=== PATIENT | female | born 1955 | race African-American/Black ===

== ENCOUNTER 2022-08-28 20:06 | Inpatient (IN) ==
[~2022-08-28 20:06] MED LIST: TICAGRELOR 90 MG TABLET PO STA
[2022-08-28 21:36] LABS: Basophils % 0.3 % (0.0-0.8); Eosinophils % 0.2 % (0.00-10.9); Hematocrit 33.7 VOL% (35.7-47.0); Hemoglobin 10.4 GM/DL (12.0-16.0); Immature Granulocytes % 0.4 %; Immature Granulocytes Absolute 0.05 #; Lymphocytes # 0.6 10*3/uL (1.4-4.0); Lymphocytes % 4.9 % (21.3-54.2); Mean Corpuscular HGB Conc 30.9 GM/DL (32-36); Mean Corpuscular Volume 94.7 FL (87-102); Mean Platelet Volume 12.3 FL (9.6-12.0); Monocytes # 0.6 10*3/uL (0.11-0.8); Monocytes % 5.3 % (1.7-12.7); Neutrophils % 88.9 % (38.7-73.9); Platelet Count 186 T/CUMM (130-400); Red Blood Count 3.56 MC/CUMM (3.8-5.5); Red Cell Distribution Width 17.9 % (9.3-17.3)
[2022-08-28 21:54] LABS: Albumin 3.4 G/DL (3.4-5.0); Bilirubin,Total 0.6 MG/DL (0.20-1.00); Calcium 8.7 MG/DL (8.5-10.1); Osmolality,Calculated 291.1 MOS/KG (273-304); Total Protein 6.4 G/DL (6.4-8.2)
[2022-08-28 21:57] LABS: Lymphocytes 6 % (20-55); Total Cells Counted 100
[2022-08-28 21:58] LABS: Platelet Estimate Adequate
[2022-08-28] MEDS ORDERED: ONDANSETRON 4 MG/2 ML VIAL ONE (22:08)
[2022-08-28] MEDS ORDERED: NITROGLYCERIN SL 0.4 MG TABLET SL STA (22:15)
[2022-08-28] MEDS ORDERED: ASPIRIN EC 325 MG TABLET PO STA (22:15)
[2022-08-28] MEDS ORDERED: fentaNYL 100 MCG/2 ML VIAL IV STA (22:16)
[2022-08-28] MEDS ORDERED: ENOXAPARIN 30 MG/0.3 ML SYRINGE SUBCUT STA (23:15)
[2022-08-28] MEDS ORDERED: ENOXAPARIN 100 MG/ML SYRINGE SUBCUT ONE (23:31)
[2022-08-28] MEDS ORDERED: PROMETHAZINE 25 MG/1 ML VIAL ONE (23:35)
[2022-08-28] MEDS ORDERED: hydrALAZINE 20 MG/1 ML VIAL IV PRN (23:41)
[2022-08-28] MEDS ORDERED: diphenhydrAMINE CAP 25 MG CAPSULE PO PRN (23:41)
[2022-08-28] MEDS ORDERED: DEXTROSE 10% 250 ML BAG IV PRN (23:41)
[2022-08-28] MEDS ORDERED: NICOTINE 21 MG/24 HR PATCH TRANSDERM PRN (23:41)
[2022-08-28] MEDS ORDERED: GLUCAGON 1 MG VIAL IM PRN (23:41)
[2022-08-28] MEDS ORDERED: ZALEPLON 5 MG CAPSULE PO PRN (23:41)
[2022-08-28] MEDS ORDERED: ACETAMINOPHEN 325 MG TABLET PO PRN (23:41)
[2022-08-28] MEDS ORDERED: guaiFENesin/DM ER 600-30 MG TABLET PO PRN (23:41)
[2022-08-29] MEDS: MORPHINE 2 MG/1 ML SYRINGE IV PRN (02:04)
[2022-08-29 03:19] LABS: Basophils % 0.2 % (0.0-0.8); Eosinophils % 0.1 % (0.00-10.9); Hemoglobin 9.2 GM/DL (12.0-16.0); Immature Granulocytes % 0.5 %; Immature Granulocytes Absolute 0.06 #; Lymphocytes # 0.8 10*3/uL (1.4-4.0); Lymphocytes % 5.8 % (21.3-54.2); Mean Corpuscular HGB Conc 30.7 GM/DL (32-36); Mean Corpuscular Volume 93.2 FL (87-102); Mean Platelet Volume 11.1 FL (9.6-12.0); Monocytes # 0.8 10*3/uL (0.11-0.8); Monocytes % 5.7 % (1.7-12.7); Neutrophils % 87.7 % (38.7-73.9); Platelet Count 159 T/CUMM (130-400); Red Blood Count 3.22 MC/CUMM (3.8-5.5); Red Cell Distribution Width 17.9 % (9.3-17.3); White Blood Count 13.3 T/CUMM (4-12)
[2022-08-29] MEDS ORDERED: TICAGRELOR 90 MG TABLET PO STA (03:32)
[2022-08-29 03:41] LABS: Calcium 8.3 MG/DL (8.5-10.1); Osmolality,Calculated 291.3 MOS/KG (273-304); Potassium 4.3 MMOL/L (3.5-5.1)
[2022-08-29 06:48] LABS: Bacteria,Urine Many /HPF (Few); Mucus,Urine Occasional /LPF (Occasional); RBC,Urine 1 /HPF (0-4); Squamous Epithelial Cell,Urine Occasional /HPF (0-10)
[2022-08-29 06:49] LABS: Bilirubin,Urine Small mg/dL (Negative); Blood, Urine Negative (Negative); Glucose,Urine (UA) Negative (Negative); Ketones,Urine Trace mg/dL (Negative); Nitrite,Urine Negative (Negative); Protein,Urine >=300 mg/dL (Negative); Urine Appearance Clear (Clear); Urine Color Yellow (Yellow); Urine Specific Gravity > 1.030 (1.001-1.035); Urine Urobilinogen 0.2 eU/dL (<2.0); Urine pH 5.5 (4.5-8.0)
[2022-08-29] MEDS ORDERED: FUROSEMIDE 40 MG/4 ML VIAL IV SCH ×2 (07:00→09:00)
[2022-08-29] MEDS ORDERED: INSULIN LISPRO 100 UNIT/ML SUBCUT SCH ×2 (07:30→12:00)
[2022-08-29] MEDS ORDERED: ROSUVASTATIN 20 MG TABLET PO SCH (09:00)
[2022-08-29 10:39] LABS: Risk Ratio 1.64
[2022-08-29] MEDS: carvediloL 25 MG TABLET PO SCH ×2 (13:13→23:22)
[2022-08-29] MEDS: PANTOPRAZOLE 40 MG TABLET PO SCH (13:13)
[2022-08-29] MEDS: ISOSORBIDE MONONITRATE 30 MG TABLET PO SCH (13:13)
[2022-08-29] MEDS: ASPIRIN EC 81 MG TABLET PO SCH (13:13)
[2022-08-29] MEDS: DEXTROSE 5% NACL 0.45% 1,000 ML IV SCH (14:38)
[2022-08-29 14:58] LABS: Hepatitis B Core IgM Quant 0.13 Index; Hepatitis B Surface Ag Quant 0.24 Index; Hepatitis B Surface Ag Result Non-Reactive (NonReactive); Hepatitis C Virus Ab Quant 0.23 Index; Hepatitis C Virus Ab Result Non-Reactive (NonReactive)
[2022-08-29] MEDS: INSULIN LISPRO 100 UNIT/ML SUBCUT SCH ×2 (17:15→23:23)
[2022-08-30] MEDS: DEXTROSE 5% NACL 0.45% 1,000 ML IV SCH ×2 (05:25→15:40)
[2022-08-30 05:34] LABS: Basophils % 0.2 % (0.0-0.8); Eosinophils # 0.2 10*3/uL (0.0-0.87); Eosinophils % 2.8 % (0.00-10.9); Hematocrit 25.8 VOL% (35.7-47.0); Hemoglobin 8.1 GM/DL (12.0-16.0); Immature Granulocytes % 0.3 %; Immature Granulocytes Absolute 0.02 #; Lymphocytes # 0.7 10*3/uL (1.4-4.0); Lymphocytes % 11.7 % (21.3-54.2); Mean Corpuscular HGB Conc 31.4 GM/DL (32-36); Mean Corpuscular Volume 92.5 FL (87-102); Mean Platelet Volume 13.2 FL (9.6-12.0); Monocytes # 0.5 10*3/uL (0.11-0.8); Monocytes % 8.5 % (1.7-12.7); Neutrophils % 76.5 % (38.7-73.9); Platelet Count 145 T/CUMM (130-400); Red Blood Count 2.79 MC/CUMM (3.8-5.5); White Blood Count 6.1 T/CUMM (4-12)
[2022-08-30 05:51] LABS: Calcium 7.8 MG/DL (8.5-10.1); Osmolality,Calculated 289.4 MOS/KG (273-304); Potassium 4.2 MMOL/L (3.5-5.1)
[2022-08-30 06:02] LABS: Albumin 2.6 G/DL (3.4-5.0); Bilirubin,Direct 0.16 MG/DL (0.0-0.20); Bilirubin,Indirect 0.2 MG/DL (0.0-1.0); Bilirubin,Total 0.4 MG/DL (0.20-1.00); Total Protein 4.8 G/DL (6.4-8.2)
[2022-08-30] MEDS: INSULIN LISPRO 100 UNIT/ML SUBCUT SCH ×4 (08:37→21:50)
[2022-08-30] MEDS: ISOSORBIDE MONONITRATE 30 MG TABLET PO SCH (09:35)
[2022-08-30] MEDS: CLOPIDOGREL 75 MG TABLET PO SCH (09:35)
[2022-08-30] MEDS: carvediloL 25 MG TABLET PO SCH ×2 (09:35→21:50)
[2022-08-30] MEDS: PANTOPRAZOLE 40 MG TABLET PO SCH (09:35)
[2022-08-30] MEDS: ASPIRIN EC 81 MG TABLET PO SCH (09:36)
[2022-08-30 10:37] LABS: % Iron Saturation 6.5 % (18-50)
[2022-08-30 12:01] LABS: Alkaline Phos %Thermolabile 19 %; Alkaline Phos %Thermostable 81 %; Alkaline Phosphatase 207 U/L (45-117)
[2022-08-30] MEDS: ONDANSETRON 4 MG/2 ML VIAL IV PRN ×2 (12:12→19:35)
[2022-08-30] MEDS: DOCUSATE SODIUM 100 MG CAPSULE PO SCH (21:50)
[2022-08-30] MEDS: FERROUS SULFATE 325 MG TABLET PO SCH (21:50)
[2022-08-31] MEDS: DEXTROSE 5% NACL 0.45% 1,000 ML IV SCH ×3 (01:45→21:25)
[2022-08-31 04:38] LABS: Basophils % 0.4 % (0.0-0.8); Eosinophils # 0.2 10*3/uL (0.0-0.87); Eosinophils % 4.2 % (0.00-10.9); Hematocrit 25.5 VOL% (35.7-47.0); Hemoglobin 7.9 GM/DL (12.0-16.0); Immature Granulocytes % 0.4 %; Immature Granulocytes Absolute 0.02 #; Lymphocytes # 0.9 10*3/uL (1.4-4.0); Lymphocytes % 19.5 % (21.3-54.2); Mean Corpuscular Volume 92.7 FL (87-102); Mean Platelet Volume 12.6 FL (9.6-12.0); Monocytes # 0.5 10*3/uL (0.11-0.8); Monocytes % 10.1 % (1.7-12.7); Neutrophils % 65.4 % (38.7-73.9); Platelet Count 127 T/CUMM (130-400); Red Blood Count 2.75 MC/CUMM (3.8-5.5); White Blood Count 4.6 T/CUMM (4-12)
[2022-08-31 04:53] LABS: Calcium 7.8 MG/DL (8.5-10.1); Potassium 3.8 MMOL/L (3.5-5.1)
[2022-08-31] MEDS: INSULIN LISPRO 100 UNIT/ML SUBCUT SCH ×4 (09:06→21:00)
[2022-08-31] MEDS: DOCUSATE SODIUM 100 MG CAPSULE PO SCH ×2 (09:49→21:19)
[2022-08-31] MEDS: PANTOPRAZOLE 40 MG TABLET PO SCH (09:49)
[2022-08-31] MEDS: ASPIRIN EC 81 MG TABLET PO SCH (09:49)
[2022-08-31] MEDS: CLOPIDOGREL 75 MG TABLET PO SCH (09:49)
[2022-08-31] MEDS: FERROUS SULFATE 325 MG TABLET PO SCH ×2 (09:49→21:19)
[2022-08-31] MEDS: carvediloL 25 MG TABLET PO SCH ×2 (09:51→21:22)
[2022-08-31] MEDS: ISOSORBIDE MONONITRATE 30 MG TABLET PO SCH (09:51)
[2022-08-31] MEDS: POLYETHYLENE GLYCOL POWDER 17 GM PACK PO PRN (14:34)
[2022-08-31] MEDS: MORPHINE 2 MG/1 ML SYRINGE IV PRN (21:22)
[2022-08-31] MEDS: ONDANSETRON 4 MG/2 ML VIAL IV PRN (23:15)
[2022-09-01] MEDS ORDERED: METOCLOPRAMIDE 10 MG/2 ML VIAL IV PRN (01:20)
[2022-09-01 04:40] LABS: Basophils % 0.4 % (0.0-0.8); Eosinophils # 0.1 10*3/uL (0.0-0.87); Eosinophils % 2.5 % (0.00-10.9); Hematocrit 25.6 VOL% (35.7-47.0); Hemoglobin 8.1 GM/DL (12.0-16.0); Immature Granulocytes % 0.4 %; Immature Granulocytes Absolute 0.02 #; Lymphocytes % 21.4 % (21.3-54.2); Mean Corpuscular HGB Conc 31.6 GM/DL (32-36); Mean Corpuscular Volume 91.1 FL (87-102); Mean Platelet Volume 12.5 FL (9.6-12.0); Monocytes # 0.5 10*3/uL (0.11-0.8); Monocytes % 10.9 % (1.7-12.7); Neutrophils % 64.4 % (38.7-73.9); Platelet Count 144 T/CUMM (130-400); Red Blood Count 2.81 MC/CUMM (3.8-5.5); Red Cell Distribution Width 17.4 % (9.3-17.3); White Blood Count 4.9 T/CUMM (4-12)
[2022-09-01 04:56] LABS: Calcium 7.8 MG/DL (8.5-10.1); Osmolality,Calculated 277.5 MOS/KG (273-304); Potassium 4.5 MMOL/L (3.5-5.1)
[2022-09-01] MEDS: DEXTROSE 5% NACL 0.45% 1,000 ML IV SCH ×2 (07:45→18:50)
[2022-09-01] MEDS: CLOPIDOGREL 75 MG TABLET PO SCH (08:56)
[2022-09-01] MEDS: FERROUS SULFATE 325 MG TABLET PO SCH ×2 (08:56→21:30)
[2022-09-01] MEDS: PANTOPRAZOLE 40 MG TABLET PO SCH (08:56)
[2022-09-01] MEDS: carvediloL 25 MG TABLET PO SCH ×2 (08:56→21:30)
[2022-09-01] MEDS: ASPIRIN EC 81 MG TABLET PO SCH (08:56)
[2022-09-01] MEDS: ISOSORBIDE MONONITRATE 30 MG TABLET PO SCH (08:56)
[2022-09-01] MEDS: DOCUSATE SODIUM 100 MG CAPSULE PO SCH ×2 (08:56→21:30)
[2022-09-01] MEDS: INSULIN LISPRO 100 UNIT/ML SUBCUT SCH ×4 (08:57→20:34)
[2022-09-01] MEDS ORDERED: BISACODYL 10 MG SUPP RECTAL PRN (10:38)
[2022-09-02] MEDS: DEXTROSE 5% NACL 0.45% 1,000 ML IV SCH (05:05)
[2022-09-02] MEDS: POLYETHYLENE GLYCOL POWDER 17 GM PACK PO PRN (06:30)
[2022-09-02] MEDS: NITROGLYCERIN SL 0.4 MG TABLET SL PRN ×2 (07:31→07:36)
[2022-09-02 07:52] LABS: Basophils % 0.6 % (0.0-0.8); Eosinophils # 0.3 10*3/uL (0.0-0.87); Eosinophils % 5.6 % (0.00-10.9); Hematocrit 27.1 VOL% (35.7-47.0); Hemoglobin 8.8 GM/DL (12.0-16.0); Immature Granulocytes % 0.4 %; Immature Granulocytes Absolute 0.02 #; Lymphocytes # 0.9 10*3/uL (1.4-4.0); Lymphocytes % 18.7 % (21.3-54.2); Mean Corpuscular HGB Conc 32.5 GM/DL (32-36); Mean Corpuscular Volume 89.1 FL (87-102); Mean Platelet Volume 12.6 FL (9.6-12.0); Monocytes # 0.5 10*3/uL (0.11-0.8); Monocytes % 9.7 % (1.7-12.7); Platelet Count 165 T/CUMM (130-400); Red Blood Count 3.04 MC/CUMM (3.8-5.5); Red Cell Distribution Width 17.1 % (9.3-17.3); White Blood Count 4.7 T/CUMM (4-12)
[2022-09-02 08:09] LABS: Eosinophils 6 % (0-10); Lymphocytes 16 % (20-55); Platelet Estimate Adequate; Total Cells Counted 100
[2022-09-02 08:10] LABS: Hypochromia 1+; Microcytosis 1+
[2022-09-02] MEDS ORDERED: LACTULOSE 20 GM/30 ML UDCUP PO ONE (08:26)
[2022-09-02 08:46] LABS: Osmolality,Calculated 266.1 MOS/KG (273-304); Potassium 3.7 MMOL/L (3.5-5.1)
[2022-09-02] MEDS: DOCUSATE SODIUM 100 MG CAPSULE PO SCH ×2 (09:17→20:56)
[2022-09-02] MEDS: CLOPIDOGREL 75 MG TABLET PO SCH (09:18)
[2022-09-02] MEDS: ISOSORBIDE MONONITRATE 30 MG TABLET PO SCH (09:19)
[2022-09-02] MEDS: PANTOPRAZOLE 40 MG TABLET PO SCH (09:19)
[2022-09-02] MEDS: carvediloL 25 MG TABLET PO SCH ×2 (09:20→20:56)
[2022-09-02] MEDS: FERROUS SULFATE 325 MG TABLET PO SCH ×2 (09:20→20:56)
[2022-09-02] MEDS: ASPIRIN EC 81 MG TABLET PO SCH (09:21)
[2022-09-02] MEDS: INSULIN LISPRO 100 UNIT/ML SUBCUT SCH ×4 (09:21→20:56)
[2022-09-02] MEDS ORDERED: LACTULOSE 20 GM/30 ML UDCUP PO PRN (09:46)
[2022-09-02] MEDS: DEXTROSE 5% NACL 0.9% 1,000 ML IV SCH ×2 (11:55→21:22)
[2022-09-03 05:39] LABS: Calcium 7.8 MG/DL (8.5-10.1); Osmolality,Calculated 266.9 MOS/KG (273-304); Potassium 3.6 MMOL/L (3.5-5.1)
[2022-09-03] MEDS: PANTOPRAZOLE 40 MG TABLET PO SCH (08:42)
[2022-09-03] MEDS: CLOPIDOGREL 75 MG TABLET PO SCH (08:43)
[2022-09-03] MEDS: ISOSORBIDE MONONITRATE 30 MG TABLET PO SCH (08:43)
[2022-09-03] MEDS: ASPIRIN EC 81 MG TABLET PO SCH (08:43)
[2022-09-03] MEDS: DOCUSATE SODIUM 100 MG CAPSULE PO SCH (08:43)
[2022-09-03] MEDS: FERROUS SULFATE 325 MG TABLET PO SCH (08:43)
[2022-09-03] MEDS: carvediloL 25 MG TABLET PO SCH (08:43)
[2022-09-03] MEDS: INSULIN LISPRO 100 UNIT/ML SUBCUT SCH ×2 (08:43→14:18)
[2022-09-03 11:53] VITALS: BP 150/68
== END 2022-09-03 15:20 | disposition home or self-care (01) | DRG 683 ==
LOC: N.ED 20:06 → N.TELES 23:41 → SUATTDRO 23:41 → N.TELES 08-29 02:25
PROVIDERS: ADMIT Internal Medicine Geriatric Medicine; ATTEND Internal Medicine

== ENCOUNTER 2022-10-14 17:15 | Observation (INO) ==
[2022-10-14] MEDS ORDERED: MORPHINE 2 MG/1 ML SYRINGE IV PRN (21:55)
[2022-10-14] MEDS ORDERED: ONDANSETRON 4 MG/2 ML VIAL IV PRN (21:55)
[2022-10-14] MEDS ORDERED: ACETAMINOPHEN 325 MG TABLET PO PRN (21:55)
[2022-10-14] MEDS ORDERED: GLUCAGON 1 MG VIAL IM PRN (21:55)
[2022-10-14] MEDS ORDERED: DEXTROSE 10% 250 ML BAG IV PRN (22:04)
[2022-10-15 06:19] LABS: Eosinophils # 0.1 10*3/uL (0.0-0.87); Eosinophils % 3.1 % (0.00-10.9); Hemoglobin 8.2 GM/DL (12.0-16.0); Immature Granulocytes % 0.7 %; Immature Granulocytes Absolute 0.02 #; Lymphocytes # 0.8 10*3/uL (1.4-4.0); Lymphocytes % 26.5 % (21.3-54.2); Mean Corpuscular HGB Conc 32.8 GM/DL (32-36); Mean Corpuscular Volume 87.1 FL (87-102); Mean Platelet Volume 12.1 FL (9.6-12.0); Monocytes # 0.3 10*3/uL (0.11-0.8); Monocytes % 10.1 % (1.7-12.7); Neutrophils % 58.6 % (38.7-73.9); Platelet Count 204 T/CUMM (130-400); Red Blood Count 2.87 MC/CUMM (3.8-5.5); Red Cell Distribution Width 18.3 % (9.3-17.3); White Blood Count 2.9 T/CUMM (4-12)
[2022-10-15 06:37] LABS: Risk Ratio 2.17; VLDL Cholesterol 13.8 MG/DL
[2022-10-15 06:52] LABS: Calcium 8.9 MG/DL (8.5-10.1); Osmolality,Calculated 287.5 MOS/KG (273-304); Potassium 3.6 MMOL/L (3.5-5.1)
[2022-10-15] MEDS ORDERED: INFLUENZA VIRUS VACCINE 0.5 ML SYRINGE IM ONE (07:25)
[2022-10-15] MEDS ORDERED: POLYETHYLENE GLYCOL POWDER 17 GM PACK PO PRN (08:29)
[2022-10-15] MEDS ORDERED: cloNIDine 0.1 MG TABLET PO PRN (08:30)
[2022-10-15] MEDS ORDERED: CLOPIDOGREL 75 MG TABLET PO SCH (09:00)
[2022-10-15] MEDS: INSULIN REGULAR 100 UNIT/ML SUBCUT SCH ×4 (11:46→20:29)
[2022-10-15] MEDS: PANTOPRAZOLE 40 MG TABLET PO SCH ×2 (11:52→11:54)
[2022-10-15] MEDS: carvediloL 25 MG TABLET PO SCH ×2 (11:52→20:28)
[2022-10-15] MEDS: ISOSORBIDE MONONITRATE 30 MG TABLET PO SCH (11:53)
[2022-10-15] MEDS: FERROUS SULFATE 325 MG TABLET PO SCH ×2 (11:53→20:28)
[2022-10-15] MEDS: ASPIRIN EC 81 MG TABLET PO SCH (11:53)
[2022-10-15] MEDS: CHOLECALCIFEROL 5,000 UNIT TABLET PO SCH (11:53)
[2022-10-15] MEDS ORDERED: ENOXAPARIN 100 MG/ML SYRINGE SUBCUT SCH (21:00)
[2022-10-15] MEDS ORDERED: cloNIDine 0.1 MG TABLET PO SCH (21:00)
[2022-10-16] MEDS: FERROUS SULFATE 325 MG TABLET PO SCH (09:17)
[2022-10-16] MEDS: CHOLECALCIFEROL 5,000 UNIT TABLET PO SCH (09:17)
[2022-10-16] MEDS: INSULIN REGULAR 100 UNIT/ML SUBCUT SCH ×2 (09:17→11:40)
[2022-10-16] MEDS: ISOSORBIDE MONONITRATE 30 MG TABLET PO SCH (09:17)
[2022-10-16] MEDS: PANTOPRAZOLE 40 MG TABLET PO SCH ×2 (09:17→09:19)
[2022-10-16] MEDS: carvediloL 25 MG TABLET PO SCH (09:17)
[2022-10-16] MEDS: ASPIRIN EC 81 MG TABLET PO SCH (09:18)
[2022-10-16 12:29] VITALS: BP 138/63
== END 2022-10-16 14:15 | disposition home or self-care (01) ==
LOC: SUATTDRO 20:39 → INTOOBSV 20:39 → N.TELEN 20:39
PROVIDERS: ADMIT Internal Medicine; ATTEND Internal Medicine

== ENCOUNTER 2022-10-20 19:17 | Inpatient (IN) ==
[2022-10-20] MEDS ORDERED: SODIUM CHLORIDE 0.9% 500 ML IV STA (19:44)
[2022-10-20] MEDS ORDERED: PANTOPRAZOLE 40 MG VIAL IV STA (19:44)
[2022-10-20] MEDS ORDERED: ONDANSETRON 4 MG/2 ML VIAL IV STA (19:44)
[2022-10-20] MEDS ORDERED: MORPHINE 2 MG/1 ML SYRINGE IV STA ×3 (19:46→21:27)
[2022-10-20 19:55] LABS: Basophils % 0.5 % (0.0-0.8); Eosinophils # 0.1 10*3/uL (0.0-0.87); Eosinophils % 3.3 % (0.00-10.9); Hematocrit 26.7 VOL% (35.7-47.0); Hemoglobin 8.6 GM/DL (12.0-16.0); Immature Granulocytes % 0.5 %; Immature Granulocytes Absolute 0.02 #; Lymphocytes # 0.7 10*3/uL (1.4-4.0); Lymphocytes % 16.5 % (21.3-54.2); Mean Corpuscular HGB Conc 32.2 GM/DL (32-36); Mean Corpuscular Volume 88.1 FL (87-102); Mean Platelet Volume 11.5 FL (9.6-12.0); Monocytes # 0.4 10*3/uL (0.11-0.8); Monocytes % 9.4 % (1.7-12.7); Neutrophils % 69.8 % (38.7-73.9); Platelet Count 179 T/CUMM (130-400); Red Blood Count 3.03 MC/CUMM (3.8-5.5); Red Cell Distribution Width 18.6 % (9.3-17.3); White Blood Count 4.2 T/CUMM (4-12)
[2022-10-20 20:13] LABS: Albumin 3.5 G/DL (3.4-5.0); Bilirubin,Total 0.5 MG/DL (0.20-1.00); Calcium 8.7 MG/DL (8.5-10.1); Osmolality,Calculated 289.7 MOS/KG (273-304); Potassium 4.4 MMOL/L (3.5-5.1); Total Protein 6.7 G/DL (6.4-8.2)
[2022-10-20 21:26] LABS: Bacteria,Urine Many /HPF (Few); Bilirubin,Urine Small mg/dL (Negative); Blood, Urine Negative (Negative); Glucose,Urine (UA) Negative (Negative); Hyaline Casts,Urine 8 /LPF (0-3); Ketones,Urine Trace mg/dL (Negative); Mucus,Urine Occasional /LPF (Occasional); Nitrite,Urine Negative (Negative); Protein,Urine >=300 mg/dL (Negative); RBC,Urine 7 /HPF (0-4); Squamous Epithelial Cell,Urine Occasional /HPF (0-10); Urine Appearance Slightly Cloudy (Clear); Urine Color Yellow (Yellow); Urine Specific Gravity >= 1.030 (1.001-1.035); Urine Urobilinogen 0.2 eU/dL (<2.0)
[2022-10-20] MEDS ORDERED: cefTRIAXone 1,000 MG in SODIUM CHLORIDE 0.9% 100 ML IV STA (21:30)
[2022-10-20] MEDS ORDERED: GLUCAGON 1 MG VIAL IM PRN (22:18)
[2022-10-20] MEDS ORDERED: hydrALAZINE 20 MG/1 ML VIAL IV PRN (22:18)
[2022-10-20] MEDS ORDERED: ZALEPLON 5 MG CAPSULE PO PRN (22:18)
[2022-10-20] MEDS ORDERED: diphenhydrAMINE CAP 25 MG CAPSULE PO PRN (22:18)
[2022-10-20] MEDS ORDERED: MORPHINE 2 MG/1 ML SYRINGE IV PRN (22:18)
[2022-10-20] MEDS ORDERED: guaiFENesin/DM ER 600-30 MG TABLET PO PRN (22:18)
[2022-10-20] MEDS ORDERED: NICOTINE 21 MG/24 HR PATCH TRANSDERM PRN (22:18)
[2022-10-20] MEDS ORDERED: DEXTROSE 10% 250 ML BAG IV PRN (22:24)
[2022-10-21 01:39] LABS: Basophils % 0.9 % (0.0-0.8); Eosinophils % 1.2 % (0.00-10.9); Hematocrit 24.6 VOL% (35.7-47.0); Hemoglobin 7.7 GM/DL (12.0-16.0); Immature Granulocytes % 0.3 %; Immature Granulocytes Absolute 0.01 #; Lymphocytes # 0.6 10*3/uL (1.4-4.0); Lymphocytes % 16.4 % (21.3-54.2); Mean Corpuscular HGB Conc 31.3 GM/DL (32-36); Mean Corpuscular Volume 89.8 FL (87-102); Monocytes # 0.3 10*3/uL (0.11-0.8); Monocytes % 7.9 % (1.7-12.7); Neutrophils % 73.3 % (38.7-73.9); Platelet Count 165 T/CUMM (130-400); Red Blood Count 2.74 MC/CUMM (3.8-5.5); Red Cell Distribution Width 18.5 % (9.3-17.3); White Blood Count 3.4 T/CUMM (4-12)
[2022-10-21 02:16] LABS: Calcium 8.2 MG/DL (8.5-10.1); Osmolality,Calculated 288.7 MOS/KG (273-304); Potassium 4.1 MMOL/L (3.5-5.1)
[2022-10-21] MEDS: ONDANSETRON 4 MG/2 ML VIAL IV PRN ×2 (04:59→09:39)
[2022-10-21] MEDS: PROMETHAZINE 25 MG TABLET PO PRN ×2 (06:22→13:39)
[2022-10-21] MEDS ORDERED: NITROGLYCERIN SL 0.4 MG TABLET SL PRN (06:46)
[2022-10-21] MEDS: INSULIN LISPRO 100 UNIT/ML SUBCUT SCH ×4 (09:36→22:19)
[2022-10-21] MEDS: HEPARIN 5,000 UNIT/1 ML VIAL SUBCUT SCH ×3 (09:36→09:47)
[2022-10-21] MEDS: PANTOPRAZOLE 40 MG TABLET PO SCH (09:47)
[2022-10-21] MEDS: carvediloL 25 MG TABLET PO SCH ×2 (09:47→22:21)
[2022-10-21] MEDS: FUROSEMIDE 80 MG TABLET PO SCH (09:47)
[2022-10-21] MEDS ORDERED: PROMETHAZINE 25 MG/1 ML VIAL IM PRN (09:48)
[2022-10-21 14:06] LABS: Ferritin 39.7 ng/mL (8-252); Free T4 (Free Thyroxine) 1.3 NG/DL (0.76-1.46); Thyroid Stimulating Hormone 3.51 uIU/ml (0.358-3.74)
[2022-10-21 15:05] LABS: Folate 7.89 NG/ML (5.38-24.0)
[2022-10-21] MEDS: FERRIC GLUCONATE COMPLEX 125 MG in SODIUM CHLORIDE 0.9% 100 ML IV SCH (18:34)
[2022-10-21] MEDS: cefTRIAXone 1,000 MG in SODIUM CHLORIDE 0.9% 100 ML IV SCH (22:22)
[2022-10-22 05:30] LABS: Basophils % 0.4 % (0.0-0.8); Eosinophils # 0.3 10*3/uL (0.0-0.87); Eosinophils % 6.2 % (0.00-10.9); Hematocrit 26.2 VOL% (35.7-47.0); Hemoglobin 8.5 GM/DL (12.0-16.0); Immature Granulocytes % 0.2 %; Immature Granulocytes Absolute 0.01 #; Lymphocytes # 1.2 10*3/uL (1.4-4.0); Mean Corpuscular HGB Conc 32.4 GM/DL (32-36); Mean Corpuscular Volume 87.6 FL (87-102); Mean Platelet Volume 11.2 FL (9.6-12.0); Monocytes # 0.5 10*3/uL (0.11-0.8); Monocytes % 11.3 % (1.7-12.7); Neutrophils % 55.9 % (38.7-73.9); Platelet Count 187 T/CUMM (130-400); Red Blood Count 2.99 MC/CUMM (3.8-5.5); Red Cell Distribution Width 18.2 % (9.3-17.3); White Blood Count 4.5 T/CUMM (4-12)
[2022-10-22 05:45] LABS: Calcium 8.4 MG/DL (8.5-10.1); Osmolality,Calculated 284.8 MOS/KG (273-304); Potassium 4.1 MMOL/L (3.5-5.1)
[2022-10-22] MEDS: INSULIN LISPRO 100 UNIT/ML SUBCUT SCH ×4 (09:31→22:44)
[2022-10-22] MEDS: carvediloL 25 MG TABLET PO SCH ×2 (10:07→22:45)
[2022-10-22] MEDS: FUROSEMIDE 80 MG TABLET PO SCH (10:07)
[2022-10-22] MEDS: PANTOPRAZOLE 40 MG TABLET PO SCH (10:07)
[2022-10-22] MEDS: FERRIC GLUCONATE COMPLEX 125 MG in SODIUM CHLORIDE 0.9% 100 ML IV SCH (10:07)
[2022-10-22] MEDS: cefTRIAXone 1,000 MG in SODIUM CHLORIDE 0.9% 100 ML IV SCH (22:45)
[2022-10-23 08:43] LABS: Basophils % 0.5 % (0.0-0.8); Eosinophils # 0.1 10*3/uL (0.0-0.87); Eosinophils % 2.3 % (0.00-10.9); Hematocrit 25.9 VOL% (35.7-47.0); Hemoglobin 8.1 GM/DL (12.0-16.0); Immature Granulocytes % 0.3 %; Immature Granulocytes Absolute 0.01 #; Lymphocytes # 0.8 10*3/uL (1.4-4.0); Lymphocytes % 20.6 % (21.3-54.2); Mean Corpuscular HGB Conc 31.3 GM/DL (32-36); Mean Corpuscular Volume 88.4 FL (87-102); Mean Platelet Volume 10.9 FL (9.6-12.0); Monocytes # 0.4 10*3/uL (0.11-0.8); Monocytes % 10.5 % (1.7-12.7); Neutrophils % 65.8 % (38.7-73.9); Platelet Count 175 T/CUMM (130-400); Red Blood Count 2.93 MC/CUMM (3.8-5.5); Red Cell Distribution Width 18.4 % (9.3-17.3); White Blood Count 3.9 T/CUMM (4-12)
[2022-10-23 09:02] LABS: Calcium 8.4 MG/DL (8.5-10.1); Potassium 4.2 MMOL/L (3.5-5.1)
[2022-10-23] MEDS: FERRIC GLUCONATE COMPLEX 125 MG in SODIUM CHLORIDE 0.9% 100 ML IV SCH (09:18)
[2022-10-23] MEDS: carvediloL 25 MG TABLET PO SCH (09:19)
[2022-10-23] MEDS: PANTOPRAZOLE 40 MG TABLET PO SCH (09:20)
[2022-10-23] MEDS: FUROSEMIDE 80 MG TABLET PO SCH (09:20)
[2022-10-23] MEDS ORDERED: FOSFOMYCIN 3 GM PACK PO ONE (10:00)
[2022-10-23] MEDS: INSULIN LISPRO 100 UNIT/ML SUBCUT SCH ×2 (11:11→14:43)
[2022-10-23 12:20] VITALS: BP 127/46
== END 2022-10-23 14:35 | disposition home or self-care (01) | DRG 690 ==
LOC: N.ED 19:17 → N.EDINP 22:18 → N.TELES 23:23
PROVIDERS: ADMIT Hospitalist; ATTEND Hospitalist

== ENCOUNTER 2022-12-05 14:23 | Inpatient (IN) ==
[2022-12-05 16:27] LABS: Basophils % 0.2 % (0.0-0.8); Hematocrit 29.1 VOL% (35.7-47.0); Hemoglobin 9.6 GM/DL (12.0-16.0); Immature Granulocytes % 0.9 %; Immature Granulocytes Absolute 0.05 #; Lymphocytes # 0.6 10*3/uL (1.4-4.0); Lymphocytes % 10.4 % (21.3-54.2); Mean Corpuscular Volume 84.3 FL (87-102); Monocytes # 0.6 10*3/uL (0.11-0.8); Monocytes % 10.9 % (1.7-12.7); NRBC # 0.11 10*3/uL; Neutrophils % 77.6 % (38.7-73.9); Platelet Count 155 T/CUMM (130-400); Red Blood Count 3.45 MC/CUMM (3.8-5.5); Red Cell Distribution Width 21.2 % (9.3-17.3); White Blood Count 5.8 T/CUMM (4-12)
[2022-12-05 16:58] LABS: Albumin 3.5 G/DL (3.4-5.0); Bilirubin,Total 1.2 MG/DL (0.20-1.00); Calcium 8.7 MG/DL (8.5-10.1); Potassium 4.5 MMOL/L (3.5-5.1)
[2022-12-05] MEDS ORDERED: DEXTROSE 10% 250 ML BAG IV PRN (19:09)
[2022-12-05] MEDS ORDERED: ONDANSETRON 4 MG/2 ML VIAL IV PRN (19:09)
[2022-12-05] MEDS ORDERED: GLUCAGON 1 MG VIAL IM PRN (19:09)
[2022-12-05 19:57] LABS: Hepatitis B Core IgM Quant 0.05 Index; Hepatitis B Surface Ag Quant < 0.10 Index; Hepatitis B Surface Ag Result Non-Reactive (NonReactive); Hepatitis C Virus Ab Quant 0.06 Index; Hepatitis C Virus Ab Result Non-Reactive (NonReactive)
[2022-12-05] MEDS ORDERED: ENOXAPARIN 30 MG/0.3 ML SYRINGE SUBCUT SCH (21:00)
[2022-12-05] MEDS: INSULIN LISPRO 100 UNIT/ML SUBCUT SCH (21:00)
[2022-12-05 21:22] LABS: Bacteria,Urine Occasional /HPF (Few); Glucose,Urine (UA) Negative (Negative); Ketones,Urine Trace mg/dL (Negative); Mucus,Urine Occasional /LPF (Occasional); Protein,Urine >=300 mg/dL (Negative); RBC,Urine 1 /HPF (0-4); Squamous Epithelial Cell,Urine Occasional /HPF (0-10); Urine Appearance Slightly Hazy (Clear); Urine Color Yellow (Yellow); Urine Specific Gravity 1.025 (1.001-1.035)
[2022-12-05 21:23] LABS: Bilirubin,Urine Small mg/dL (Negative); Blood, Urine Negative (Negative); Nitrite,Urine Negative (Negative); Urine Urobilinogen 0.2 eU/dL (<2.0)
[2022-12-05] MEDS ORDERED: ENOXAPARIN 100 MG/ML SYRINGE SUBCUT STA (21:35)
[2022-12-05] MEDS: carvediloL 25 MG TABLET PO SCH (22:02)
[2022-12-05] MEDS: SODIUM CHLORIDE 0.9% 1,000 ML IV SCH (23:33)
[2022-12-06 05:48] LABS: Basophils % 0.4 % (0.0-0.8); Eosinophils # 0.1 10*3/uL (0.0-0.87); Eosinophils % 1.1 % (0.00-10.9); Hematocrit 26.4 VOL% (35.7-47.0); Hemoglobin 8.9 GM/DL (12.0-16.0); Immature Granulocytes % 0.6 %; Immature Granulocytes Absolute 0.03 #; Lymphocytes # 0.9 10*3/uL (1.4-4.0); Lymphocytes % 17.3 % (21.3-54.2); Mean Corpuscular HGB Conc 33.7 GM/DL (32-36); Mean Corpuscular Volume 83.5 FL (87-102); Mean Platelet Volume 11.1 FL (9.6-12.0); Monocytes # 0.7 10*3/uL (0.11-0.8); Monocytes % 13.7 % (1.7-12.7); NRBC # 0.24 10*3/uL; Neutrophils % 66.9 % (38.7-73.9); Platelet Count 141 T/CUMM (130-400); Red Blood Count 3.16 MC/CUMM (3.8-5.5); Red Cell Distribution Width 20.9 % (9.3-17.3); White Blood Count 5.3 T/CUMM (4-12)
[2022-12-06 06:13] LABS: Anisocytosis 2+; Hypochromia Slight; Macrocytosis 1+; Platelet Estimate Adequate; Poikilocytosis Slight; Target Cells Few
[2022-12-06 06:22] LABS: Albumin 3.3 G/DL (3.4-5.0); Bilirubin,Direct 0.58 MG/DL (0.0-0.20); Bilirubin,Indirect 0.3 MG/DL (0.0-1.0); Bilirubin,Total 0.9 MG/DL (0.20-1.00); Calcium 8.4 MG/DL (8.5-10.1); Osmolality,Calculated 292.7 MOS/KG (273-304); Potassium 4.3 MMOL/L (3.5-5.1); Risk Ratio 2.16; Total Protein 6.1 G/DL (6.4-8.2); VLDL Cholesterol 17.4 MG/DL
[2022-12-06] MEDS: INSULIN LISPRO 100 UNIT/ML SUBCUT SCH ×4 (08:01→20:23)
[2022-12-06] MEDS: carvediloL 25 MG TABLET PO SCH ×2 (08:36→16:48)
[2022-12-06] MEDS: FERROUS SULFATE 325 MG TABLET PO SCH (08:45)
[2022-12-06] MEDS: PANTOPRAZOLE 40 MG TABLET PO SCH (08:45)
[2022-12-06] MEDS ORDERED: NITROGLYCERIN SL 0.4 MG TABLET SL PRN (09:36)
[2022-12-06] MEDS: ASPIRIN EC 81 MG TABLET PO SCH (11:14)
[2022-12-06] MEDS: SODIUM CHLORIDE 0.9% 1,000 ML IV SCH ×2 (11:40→17:16)
[2022-12-07] MEDS: SODIUM CHLORIDE 0.9% 1,000 ML IV SCH ×4 (03:40→17:36)
[2022-12-07 05:20] LABS: Basophils % 0.6 % (0.0-0.8); Eosinophils # 0.1 10*3/uL (0.0-0.87); Eosinophils % 1.8 % (0.00-10.9); Hematocrit 25.7 VOL% (35.7-47.0); Hemoglobin 8.6 GM/DL (12.0-16.0); Immature Granulocytes % 0.8 %; Immature Granulocytes Absolute 0.04 #; Lymphocytes # 0.9 10*3/uL (1.4-4.0); Lymphocytes % 17.5 % (21.3-54.2); Mean Corpuscular HGB Conc 33.5 GM/DL (32-36); Mean Corpuscular Volume 83.7 FL (87-102); Monocytes # 0.6 10*3/uL (0.11-0.8); Monocytes % 11.7 % (1.7-12.7); NRBC # 0.16 10*3/uL; Neutrophils % 67.6 % (38.7-73.9); Platelet Count 126 T/CUMM (130-400); Red Blood Count 3.07 MC/CUMM (3.8-5.5); Red Cell Distribution Width 21.2 % (9.3-17.3)
[2022-12-07 05:42] LABS: Albumin 3.1 G/DL (3.4-5.0); Bilirubin,Total 0.8 MG/DL (0.20-1.00); Calcium 8.1 MG/DL (8.5-10.1); Osmolality,Calculated 293.8 MOS/KG (273-304); Potassium 3.9 MMOL/L (3.5-5.1); Total Protein 5.9 G/DL (6.4-8.2)
[2022-12-07] MEDS: INSULIN LISPRO 100 UNIT/ML SUBCUT SCH ×4 (07:58→21:21)
[2022-12-07] MEDS: PANTOPRAZOLE 40 MG TABLET PO SCH (09:09)
[2022-12-07] MEDS: FERROUS SULFATE 325 MG TABLET PO SCH (09:09)
[2022-12-07] MEDS: carvediloL 25 MG TABLET PO SCH ×2 (09:10→16:27)
[2022-12-07] MEDS: ASPIRIN EC 81 MG TABLET PO SCH (09:10)
[2022-12-08 04:31] LABS: Basophils % 0.4 % (0.0-0.8); Eosinophils # 0.1 10*3/uL (0.0-0.87); Eosinophils % 3.1 % (0.00-10.9); Hematocrit 25.5 VOL% (35.7-47.0); Hemoglobin 8.5 GM/DL (12.0-16.0); Immature Granulocytes % 0.7 %; Immature Granulocytes Absolute 0.03 #; Lymphocytes # 0.7 10*3/uL (1.4-4.0); Mean Corpuscular HGB Conc 33.3 GM/DL (32-36); Mean Corpuscular Volume 84.4 FL (87-102); Mean Platelet Volume 11.8 FL (9.6-12.0); Monocytes # 0.6 10*3/uL (0.11-0.8); Monocytes % 12.6 % (1.7-12.7); NRBC # 0.06 10*3/uL; Neutrophils % 67.2 % (38.7-73.9); Platelet Count 132 T/CUMM (130-400); Red Blood Count 3.02 MC/CUMM (3.8-5.5); Red Cell Distribution Width 21.6 % (9.3-17.3); White Blood Count 4.5 T/CUMM (4-12)
[2022-12-08 04:44] LABS: INR 1.1; PT Patient Result 12.3 SECS (10.1-12.1)
[2022-12-08 04:49] LABS: Calcium 8.3 MG/DL (8.5-10.1); Osmolality,Calculated 299.5 MOS/KG (273-304); Potassium 3.6 MMOL/L (3.5-5.1)
[2022-12-08 04:52] LABS: Parathyroid Hormone Intact 309.2 PG/ML (18.4-80.1)
[2022-12-08 04:54] LABS: % Iron Saturation 9.2 % (18-50); Ferritin 286.7 ng/mL (8-252)
[2022-12-08 04:55] LABS: Folate 9.48 NG/ML (5.38-24.0); Vitamin B12 > 2000 PG/ML (211-911)
[2022-12-08 05:10] LABS: Phosphorous 4.7 MG/DL (2.5-4.9)
[2022-12-08 05:19] LABS: Protein/Creatinine Ratio,Urine 1.6 RATIO
[2022-12-08] MEDS: SODIUM CHLORIDE 0.9% 1,000 ML IV SCH ×2 (06:24→23:15)
[2022-12-08] MEDS: INSULIN LISPRO 100 UNIT/ML SUBCUT SCH ×4 (07:23→21:20)
[2022-12-08] MEDS: carvediloL 25 MG TABLET PO SCH ×2 (09:20→17:04)
[2022-12-08] MEDS: FERROUS SULFATE 325 MG TABLET PO SCH (09:20)
[2022-12-08] MEDS: PANTOPRAZOLE 40 MG TABLET PO SCH (09:20)
[2022-12-08] MEDS: ASPIRIN EC 81 MG TABLET PO SCH (09:21)
[2022-12-08 11:35] LABS: Albumin 3.1 G/DL (3.4-5.0); Bilirubin,Direct 0.38 MG/DL (0.0-0.20); Bilirubin,Indirect 0.3 MG/DL (0.0-1.0); Bilirubin,Total 0.7 MG/DL (0.20-1.00); Total Protein 6.1 G/DL (6.4-8.2)
[2022-12-08] MEDS ORDERED: ENOXAPARIN 30 MG/0.3 ML SYRINGE SUBCUT SCH (14:00)
[2022-12-08] MEDS: FERRIC GLUCONATE COMPLEX 125 MG in SODIUM CHLORIDE 0.9% 100 ML IV SCH (15:13)
[2022-12-09 05:41] LABS: Basophils % 0.5 % (0.0-0.8); Eosinophils # 0.2 10*3/uL (0.0-0.87); Hematocrit 24.9 VOL% (35.7-47.0); Hemoglobin 8.4 GM/DL (12.0-16.0); Immature Granulocytes % 0.7 %; Immature Granulocytes Absolute 0.03 #; Lymphocytes # 0.9 10*3/uL (1.4-4.0); Lymphocytes % 20.7 % (21.3-54.2); Mean Corpuscular HGB Conc 33.7 GM/DL (32-36); Mean Corpuscular Volume 83.8 FL (87-102); Mean Platelet Volume 11.1 FL (9.6-12.0); Monocytes # 0.6 10*3/uL (0.11-0.8); Monocytes % 14.6 % (1.7-12.7); NRBC # 0.02 10*3/uL; Neutrophils % 59.5 % (38.7-73.9); Platelet Count 136 T/CUMM (130-400); Red Blood Count 2.97 MC/CUMM (3.8-5.5); White Blood Count 4.3 T/CUMM (4-12)
[2022-12-09 06:03] LABS: Bilirubin,Total 0.7 MG/DL (0.20-1.00); Calcium 8.2 MG/DL (8.5-10.1); Osmolality,Calculated 296.5 MOS/KG (273-304); Potassium 3.6 MMOL/L (3.5-5.1)
[2022-12-09] MEDS: INSULIN LISPRO 100 UNIT/ML SUBCUT SCH ×4 (07:35→20:31)
[2022-12-09] MEDS: carvediloL 25 MG TABLET PO SCH ×2 (08:38→16:40)
[2022-12-09] MEDS: FERRIC GLUCONATE COMPLEX 125 MG in SODIUM CHLORIDE 0.9% 100 ML IV SCH (08:38)
[2022-12-09] MEDS: PANTOPRAZOLE 40 MG TABLET PO SCH (08:38)
[2022-12-09] MEDS: ASPIRIN EC 81 MG TABLET PO SCH (08:53)
[2022-12-09] MEDS: LETROZOLE 2.5 MG TABLET PO SCH (13:28)
[2022-12-09] MEDS ORDERED: cloNIDine 0.1 MG TABLET PO PRN (14:16)
[2022-12-10 05:25] LABS: Basophils % 0.5 % (0.0-0.8); Eosinophils # 0.2 10*3/uL (0.0-0.87); Eosinophils % 4.1 % (0.00-10.9); Hematocrit 25.8 VOL% (35.7-47.0); Hemoglobin 8.5 GM/DL (12.0-16.0); Immature Granulocytes % 0.5 %; Immature Granulocytes Absolute 0.02 #; Lymphocytes # 0.8 10*3/uL (1.4-4.0); Lymphocytes % 20.4 % (21.3-54.2); Mean Corpuscular HGB Conc 32.9 GM/DL (32-36); Mean Corpuscular Volume 84.9 FL (87-102); Mean Platelet Volume 11.1 FL (9.6-12.0); Monocytes # 0.6 10*3/uL (0.11-0.8); NRBC # 0.02 10*3/uL; Neutrophils % 59.5 % (38.7-73.9); Platelet Count 141 T/CUMM (130-400); Red Blood Count 3.04 MC/CUMM (3.8-5.5); Red Cell Distribution Width 22.4 % (9.3-17.3); White Blood Count 3.7 T/CUMM (4-12)
[2022-12-10] MEDS: LIOTHYRONINE 5 MCG PO SCH (05:35)
[2022-12-10 05:57] LABS: Albumin 3.1 G/DL (3.4-5.0); Bilirubin,Total 0.8 MG/DL (0.20-1.00); Calcium 8.4 MG/DL (8.5-10.1); Osmolality,Calculated 294.7 MOS/KG (273-304); Potassium 3.8 MMOL/L (3.5-5.1); Total Protein 6.1 G/DL (6.4-8.2)
[2022-12-10] MEDS: metOLazone 5 MG TABLET PO SCH (09:28)
[2022-12-10] MEDS: LETROZOLE 2.5 MG TABLET PO SCH (09:28)
[2022-12-10] MEDS: PANTOPRAZOLE 40 MG TABLET PO SCH (09:29)
[2022-12-10] MEDS: carvediloL 25 MG TABLET PO SCH ×2 (09:29→17:45)
[2022-12-10] MEDS: ISOSORBIDE MONONITRATE 30 MG TABLET PO SCH (09:29)
[2022-12-10] MEDS: FUROSEMIDE 40 MG/4 ML VIAL IV SCH (09:30)
[2022-12-10] MEDS: ASPIRIN EC 81 MG TABLET PO SCH (09:31)
[2022-12-10] MEDS: INSULIN LISPRO 100 UNIT/ML SUBCUT SCH ×4 (09:31→21:19)
[2022-12-10] MEDS: FERRIC GLUCONATE COMPLEX 125 MG in SODIUM CHLORIDE 0.9% 100 ML IV SCH (09:33)
[2022-12-10] MEDS ORDERED: DIAZEPAM 5 MG TABLET PO ONE (10:55)
[2022-12-10] MEDS ORDERED: SODIUM CHLORIDE 0.45% 1,000 ML IV SCH (11:00)
[2022-12-11 05:04] LABS: Basophils % 0.6 % (0.0-0.8); Eosinophils # 0.1 10*3/uL (0.0-0.87); Eosinophils % 3.7 % (0.00-10.9); Hematocrit 23.9 VOL% (35.7-47.0); Hemoglobin 7.8 GM/DL (12.0-16.0); Immature Granulocytes % 0.3 %; Immature Granulocytes Absolute 0.01 #; Lymphocytes # 0.7 10*3/uL (1.4-4.0); Lymphocytes % 20.2 % (21.3-54.2); Mean Corpuscular HGB Conc 32.6 GM/DL (32-36); Mean Corpuscular Volume 85.7 FL (87-102); Mean Platelet Volume 9.7 FL (9.6-12.0); Monocytes # 0.5 10*3/uL (0.11-0.8); Monocytes % 12.9 % (1.7-12.7); Neutrophils % 62.3 % (38.7-73.9); Platelet Count 139 T/CUMM (130-400); Red Blood Count 2.79 MC/CUMM (3.8-5.5); Red Cell Distribution Width 22.5 % (9.3-17.3); White Blood Count 3.6 T/CUMM (4-12)
[2022-12-11 05:26] LABS: Albumin 2.8 G/DL (3.4-5.0); Bilirubin,Total 0.7 MG/DL (0.20-1.00); Calcium 8.3 MG/DL (8.5-10.1); Osmolality,Calculated 298.5 MOS/KG (273-304); Potassium 3.9 MMOL/L (3.5-5.1); Total Protein 5.8 G/DL (6.4-8.2)
[2022-12-11] MEDS: LIOTHYRONINE 5 MCG PO SCH ×2 (05:32→10:13)
[2022-12-11] MEDS: INSULIN LISPRO 100 UNIT/ML SUBCUT SCH ×4 (08:55→21:35)
[2022-12-11] MEDS: PANTOPRAZOLE 40 MG TABLET PO SCH (08:56)
[2022-12-11] MEDS: LETROZOLE 2.5 MG TABLET PO SCH (08:56)
[2022-12-11] MEDS: metOLazone 5 MG TABLET PO SCH (08:56)
[2022-12-11] MEDS: carvediloL 25 MG TABLET PO SCH ×2 (08:56→16:22)
[2022-12-11] MEDS: FUROSEMIDE 40 MG/4 ML VIAL IV SCH (08:56)
[2022-12-11] MEDS: ISOSORBIDE MONONITRATE 30 MG TABLET PO SCH (08:56)
[2022-12-11] MEDS: ASPIRIN EC 81 MG TABLET PO SCH (08:56)
[2022-12-11] MEDS: FERRIC GLUCONATE COMPLEX 125 MG in SODIUM CHLORIDE 0.9% 100 ML IV SCH (08:57)
[2022-12-11] MEDS: amLODIPine 5 MG TABLET PO SCH (16:22)
[2022-12-11] MEDS ORDERED: DARBEPOETIN ALFA 100 MCG/ML VIAL SUBCUT SCH (16:30)
[2022-12-11] MEDS: DOCUSATE SODIUM 100 MG CAPSULE PO SCH (21:34)
[2022-12-12 06:10] LABS: Basophils % 0.3 % (0.0-0.8); Eosinophils # 0.1 10*3/uL (0.0-0.87); Eosinophils % 3.7 % (0.00-10.9); Hematocrit 25.3 VOL% (35.7-47.0); Hemoglobin 8.2 GM/DL (12.0-16.0); Immature Granulocytes % 0.3 %; Immature Granulocytes Absolute 0.01 #; Lymphocytes # 0.8 10*3/uL (1.4-4.0); Lymphocytes % 19.9 % (21.3-54.2); Mean Corpuscular HGB Conc 32.4 GM/DL (32-36); Mean Corpuscular Volume 86.3 FL (87-102); Mean Platelet Volume 9.5 FL (9.6-12.0); Monocytes # 0.6 10*3/uL (0.11-0.8); Monocytes % 14.7 % (1.7-12.7); NRBC # 0.03 10*3/uL; Neutrophils % 61.1 % (38.7-73.9); Platelet Count 135 T/CUMM (130-400); Red Blood Count 2.93 MC/CUMM (3.8-5.5); White Blood Count 3.8 T/CUMM (4-12)
[2022-12-12 06:28] LABS: Albumin 3.2 G/DL (3.4-5.0); Bilirubin,Total 0.7 MG/DL (0.20-1.00); Calcium 8.5 MG/DL (8.5-10.1); Osmolality,Calculated 293.7 MOS/KG (273-304); Potassium 3.9 MMOL/L (3.5-5.1); Total Protein 6.3 G/DL (6.4-8.2)
[2022-12-12 06:31] LABS: Hypochromia 1+; Microcytosis 1+; Target Cells Few
[2022-12-12 06:32] LABS: Platelet Estimate Adequate; Polychromasia Slight
[2022-12-12] MEDS ORDERED: BISACODYL 10 MG SUPP RECTAL ONE (09:00)
[2022-12-12] MEDS: LIOTHYRONINE 5 MCG PO SCH ×2 (09:02→09:21)
[2022-12-12] MEDS: INSULIN LISPRO 100 UNIT/ML SUBCUT SCH ×2 (09:02→12:36)
[2022-12-12] MEDS: ASPIRIN EC 81 MG TABLET PO SCH (09:20)
[2022-12-12] MEDS: LETROZOLE 2.5 MG TABLET PO SCH (09:20)
[2022-12-12] MEDS: amLODIPine 5 MG TABLET PO SCH (09:20)
[2022-12-12] MEDS: DOCUSATE SODIUM 100 MG CAPSULE PO SCH (09:20)
[2022-12-12] MEDS: carvediloL 25 MG TABLET PO SCH (09:20)
[2022-12-12] MEDS: metOLazone 5 MG TABLET PO SCH (09:21)
[2022-12-12] MEDS: PANTOPRAZOLE 40 MG TABLET PO SCH (09:21)
[2022-12-12] MEDS: ISOSORBIDE MONONITRATE 30 MG TABLET PO SCH (09:21)
[2022-12-12] MEDS: FUROSEMIDE 40 MG/4 ML VIAL IV SCH (11:05)
[2022-12-12] MEDS: FERRIC GLUCONATE COMPLEX 125 MG in SODIUM CHLORIDE 0.9% 100 ML IV SCH (11:09)
[2022-12-12 12:52] VITALS: BP 140/70
== END 2022-12-12 13:33 | disposition home health service (06) | DRG 442 ==
LOC: N.EDINP 14:23 → N.ED 14:23 → SUATTDRO 19:09 → N.EDINP 12-06 09:25 → N.TELES 12-06 09:35
PROVIDERS: ADMIT Internal Medicine; ATTEND Internal Medicine